=== PATIENT | male | born 1995 | race American Indian/Alaskan Native ===

== ENCOUNTER 2017-03-29 19:51 | Emergency (ER) | payer SELFPAY ==
[2017-03-29] MEDS ORDERED: ZITHROMAX PO ONE (22:40)
[2017-03-29] MEDS ORDERED: ROCEPHIN IM ONE (22:40)
[2017-03-29] MEDS ORDERED: XYLOCAINE 1% MPF 5 mL INFILTRATI ONE (22:40)
--- NOTE | 2017-03-29 22:40 | Emergency Department Report ---
<KARLA JOHNSTON - Last Filed: 03/29/17 22:36> ED General Adult HPI - General Chief complaint: Urogenital-Male Stated complaint: BURNING IN GROIN AREA Time Seen by Provider: 03/29/17 22:36 Source: patient Mode of arrival: Ambulatory Limitations: No Limitations - History of Present Illness Initial comments: 21 year old male presents with penile discharge and exposure to GC. states that his partner tested positive for it and advised him to come to the ED for tx. denies fever, penile or testicle pain. denies dysuria. denies taking medication. - Related Data Allergies Allergy/AdvReac Type Severity Reaction Status Date / Time Penicillins Allergy Angioedema Verified 03/29/17 20:03 ED Review of Systems ROS: Stated complaint: BURNING IN GROIN AREA Other details as noted in HPI Constitutional: denies: chills, fever Eyes: denies: eye pain, eye discharge, vision change ENT: denies: ear pain, throat pain Respiratory: denies: cough, shortness of breath, wheezing Cardiovascular: denies: chest pain, palpitations Endocrine: no symptoms reported Gastrointestinal: denies: abdominal pain, nausea, diarrhea Genitourinary: discharge. denies: urgency, dysuria Musculoskeletal: denies: back pain, joint swelling, arthralgia Skin: denies: rash, lesions Neurological: denies: headache, weakness, paresthesias Psychiatric: denies: anxiety, depression Hematological/Lymphatic: denies: easy bleeding, easy bruising ED Past Medical Hx - Past Medical History Previous Medical History?: No - Surgical History Past Surgical History?: No - Social History Smoking Status: Current Every Day Smoker Substance Use Type: Alcohol, Marijuana ED Physical Exam - General Limitations: No Limitations General appearance: alert, in no apparent distress - Head Head exam: Present: atraumatic, normocephalic - Eye Eye exam: Present: normal appearance - ENT ENT exam: Present: mucous membranes moist - Neck Neck exam: Present: normal inspection - Respiratory Respiratory exam: Present: normal lung sounds bilaterally. Absent: respiratory distress - Cardiovascular Cardiovascular Exam: Present: regular rate, normal rhythm. Absent: systolic murmur, diastolic murmur, rubs, gallop - GI/Abdominal GI/Abdominal exam: Present: soft, normal bowel sounds - Rectal Rectal exam: Present: deferred - Extremities Exam Extremities exam: Present: normal inspection - Back Exam Back exam: Present: normal inspection - Neurological Exam Neurological exam: Present: alert, oriented X3 - Psychiatric Psychiatric exam: Present: normal affect, normal mood - Skin Skin exam: Present: warm, dry, intact, normal color. Absent: rash ED Course Vital Signs 03/29/17 20:03 Temperature 98.5 F Pulse Rate 71 Blood Pressure 105/53 O2 Sat by Pulse 99 Oximetry ED Medical Decision Making - Medical Decision Making patient refusing testing. states he just needs tx. VSS for DC. NAD at this time. Critical care attestation.: If time is entered above; I have spent that time in minutes in the direct care of this critically ill patient, excluding procedure time. ED Disposition Disposition: DC-01 TO HOME OR SELFCARE Is pt being admited?: No Does the pt Need Aspirin: No Condition: Good Instructions: Sexually Transmitted Diseases (ED), Safe Sex (ED) Referrals: PRIMARY CARE, [Primary Care Provider] - 3-5 Days Forms: Accompanied Note, Work/School Release Form(ED) Time of Disposition: 22:40 <JOEL STEELE - Last Filed: 03/30/17 06:15> ED Medical Decision Making - Medical Decision Making Patient was empirically treated with azithromycin and Rocephin
[2017-03-30 11:33] VITALS: BP 105/53
== END 2017-03-29 23:22 | disposition home or self-care (01) ==
LOC: ED 19:51
DX: R36.9 Urethral discharge, unspecified (principal); F17.210 Nicotine dependence, cigarettes, uncomplicated; F12.10 Cannabis abuse, uncomplicated; Z88.0 Allergy status to penicillin
CPT/HCPCS: 87591; 96372; 99282; J0696

== ENCOUNTER 2019-03-30 22:59 | Emergency (ER) | payer SELFPAY ==
[2019-03-30 23:26] VITALS: BP 114/75
--- NOTE | 2019-03-31 01:47 | Emergency Department Report ---
ED Male HPI - General Chief complaint: Urogenital-Male Stated complaint: BURNING URINATION Source: patient Mode of arrival: Ambulatory Limitations: No Limitations - History of Present Illness Initial comments: Patient is a 23-year-old male who presents to the ED with complaint of acute onset suprapubic pressure, dysuria and urinary frequency and urgency with penile discharge for last 1 week. Patient denies fever, chills, nausea, vomiting, diarrhea, dizziness, low back pain, hematuria, testicular pain, scrotal pain or swelling, chronic pain, dizziness or sore throat and cough. MD Complaint: penile discharge, dysuria -: Sudden, week(s) (1) Location: penis Radiation: none Severity: moderate Severity scale (0 -10): 4 Quality: aching, burning Consistency: intermittent Improves with: none Worsens with: urination denies other symptoms, discharge, dysuria. denies: swelling, mass, rash, urinary retention, blood in urine, fever, nausea/vomiting, incontinence, other - Related Data Previous Rx's Medication Instructions Recorded Last Taken Type Azithromycin [Zithromax TAB] 2,000 mg PO ONCE #4 tablet 03/31/19 Unknown Rx Doxycycline Hyclate [Doxycycline 100 mg PO Q12HR #20 tab 03/31/19 Unknown Rx Hyclate TAB] Ondansetron [Zofran Odt] 4 mg PO Q6H PRN #10 tab.rapdis 03/31/19 Unknown Rx Allergies Allergy/AdvReac Type Severity Reaction Status Date / Time Penicillins Allergy Angioedema Verified 03/29/17 20:03 ED Review of Systems ROS: Stated complaint: BURNING URINATION Other details as noted in HPI Constitutional: denies: chills, fever Eyes: denies: eye pain, eye discharge, vision change ENT: denies: ear pain, throat pain Respiratory: denies: cough, shortness of breath, wheezing Cardiovascular: denies: chest pain, palpitations Endocrine: no symptoms reported Gastrointestinal: denies: abdominal pain, nausea, diarrhea Genitourinary: urgency, dysuria, frequency, discharge Musculoskeletal: denies: back pain, joint swelling, arthralgia Skin: denies: rash, lesions Neurological: denies: headache, weakness, paresthesias Psychiatric: denies: anxiety, depression Hematological/Lymphatic: denies: easy bleeding, easy bruising ED Past Medical Hx - Past Medical History Previous Medical History?: No - Surgical History Past Surgical History?: No - Social History Smoking Status: Current Every Day Smoker Substance Use Type: Alcohol, Marijuana - Medications Home Medications: Home Medications Medication Instructions Recorded Confirmed Last Taken Type Azithromycin [Zithromax TAB] 2,000 mg PO ONCE #4 tablet 03/31/19 Unknown Rx Doxycycline Hyclate [Doxycycline 100 mg PO Q12HR #20 tab 03/31/19 Unknown Rx Hyclate TAB] Ondansetron [Zofran Odt] 4 mg PO Q6H PRN #10 tab.rapdis 03/31/19 Unknown Rx ED Physical Exam - General Limitations: No Limitations General appearance: alert, in no apparent distress - Head Head exam: Present: atraumatic, normocephalic, normal inspection - Eye Eye exam: Present: normal appearance, PERRL, EOMI Pupils: Present: normal accommodation - ENT ENT exam: Present: normal exam, normal orophraynx, mucous membranes moist, TM's normal bilaterally, normal external ear exam - Neck Neck exam: Present: normal inspection, full ROM - Respiratory Respiratory exam: Present: normal lung sounds bilaterally. Absent: respiratory distress, wheezes, rales, rhonchi, chest wall tenderness, accessory muscle use, decreased breath sounds, prolonged expiratory - Cardiovascular Cardiovascular Exam: Present: regular rate, normal rhythm, normal heart sounds. Absent: systolic murmur, diastolic murmur, rubs, gallop - GI/Abdominal GI/Abdominal exam: Present: soft, normal bowel sounds. Absent: tenderness, guarding, hyperactive bowel sounds, organomegaly - Rectal Rectal exam: Present: deferred - exam: Present: normal inspection External exam: Present: normal external exam - Extremities Exam Extremities exam: Present: normal inspection, full ROM, normal capillary refill - Back Exam Back exam: Present: normal inspection, full ROM. Absent: tenderness, muscle spasm, vertebral tenderness - Neurological Exam Neurological exam: Present: alert, oriented X3, CN II-XII intact, normal gait, reflexes normal - Psychiatric Psychiatric exam: Present: normal affect, normal mood - Skin Skin exam: Present: warm, dry, intact, normal color. Absent: rash ED Course Vital Signs 03/30/19 23:23 Temperature 98.4 F Pulse Rate 67 Respiratory 18 Rate Blood Pressure 114/75 O2 Sat by Pulse 97 Oximetry ED Medical Decision Making - Medical Decision Making This is a 23-year-old male who presented to the ED with complaint of dysuria, penile discharge, suprapubic pressure and urinary frequency and urgency for 1 we ek. In the ED, patient is alert and oriented 3 and is not in distress. Lab test results were reviewed and shows significant due to urinary tract infection which in a patient of this age is highly likely STD given the exposure and his sexual history. Patient was treated and discharged home on medications for STD. Patient was advised to follow-up with [facility] for further evaluation. Patient was is advised to inform his sexual partner of his diagnosis so that he or she can be treated accordingly. Patient is advised to return to the ED immediately if symptoms get worse. - Differential Diagnosis STD; UTI; Epididymitis; orchitis; Trichomonas Critical care attestation.: If time is entered above; I have spent that time in minutes in the direct care of this critically ill patient, excluding procedure time. ED Disposition Clinical Impression: STD (sexually transmitted disease), Urethritis, unspecified Disposition: TO HOME OR SELFCARE Is pt being admited?: No Does the pt Need Aspirin: No Condition: Stable Instructions: Sexually Transmitted Diseases (ED), Safe Sex (ED), Nonspecific Urethritis in Men (ED) Additional Instructions: Take medication with food, drink plenty of fluids and follow-up with your primary care physician in 7-10 days for reevaluation. Return to the ED immediately if symptoms get worse. Otherwise follow-up with the [facility] for further STD testing. Prescriptions: Doxycycline Hyclate [Doxycycline Hyclate TAB] 100 mg PO Q12HR #20 tab Azithromycin [Zithromax TAB] 2,000 mg PO ONCE #4 tablet Ondansetron [Zofran Odt] 4 mg PO Q6H PRN #10 tab.rapdis PRN Reason: Nausea Referrals: PRIMARY CARE, [Primary Care Provider] - 3-5 Days Forms: STI Treatment and Prevention Time of Disposition: 01:37 Print Language: TONGAN
[2019-03-31 02:58] LABS: Bilirubin,Urine NEG (Negative); Blood,Urine NEG (Negative); Color,Urine Yellow (Yellow); Mucus,Urine 3+ /HPF; Urobilinogen,Urine < 2.0 mg/dL (<2.0)
[2019-03-31 02:59] LABS: WBC,Urine > 182.0 /HPF (0.0-6.0)
== END 2019-03-31 02:30 | disposition home or self-care (01) ==
LOC: ED 22:59
DX: Z20.2 Contact with and (suspected) exposure to infections with a predominantly sexual mode of transmission (principal); N34.2 Other urethritis; Z88.0 Allergy status to penicillin; Z79.899 Other long term (current) drug therapy; F17.200 Nicotine dependence, unspecified, uncomplicated; F12.10 Cannabis abuse, uncomplicated
CPT/HCPCS: 81001; 87591; 99283

== ENCOUNTER 2019-11-06 03:40 | Emergency (ER) | payer SELFPAY ==
[2019-11-06] MEDS ORDERED: ZIPRASIDONE MESYLATE 20 MG VIAL IM ONE (03:44)
--- NOTE | 2019-11-06 03:50 | Emergency Department Report ---
ED Psych HPI - General Stated Complaint: AMS Time Seen by Provider: 11/06/19 03:43 Source: EMS, old records reviewed Mode of arrival: Stretcher Limitations: Altered Mental Status - History of Present Illness Initial Comments: 23-year-old male with no known past medical history presents to the hospital with complaints of agitated delirium. PD was contacted by family due to unco ntrollable behavior after unknown drug use. PD managed to place patient in handcuffs. Upon EMS arrival patient was provided IM medication: Haldol 5 mg, Versed 5 mg, and Benadryl 50 mg 10 minutes prior to arrival. Patient arrives via EMS and police escort. Upon arrival patient is still restrained, agitated, intermittently screaming and thrashing around on the stretcher. Does mention he is at [facility] but otherwise would not answer questions or follow commands. As per previous medical record review patient does not have any past medical or surgical history and smokes cigarettes and uses marijuana - Related Data Previous Rx's Medication Instructions Recorded Last Taken Type Azithromycin [Zithromax TAB] 2,000 mg PO ONCE #4 tablet 03/31/19 Unknown Rx Doxycycline Hyclate [Doxycycline 100 mg PO Q12HR #20 tab 03/31/19 Unknown Rx Hyclate TAB] Ondansetron [Zofran Odt] 4 mg PO Q6H PRN #10 tab.rapdis 03/31/19 Unknown Rx Allergies Allergy/AdvReac Type Severity Reaction Status Date / Time Penicillins Allergy Angioedema Verified 03/29/17 20:03 ED Review of Systems ROS: Stated complaint: AMS Other details as noted in HPI Comment: Unobtainable due to pts medical conditions ED Past Medical Hx - Social History Smoking Status: Current Every Day Smoker Substance Use Type: Alcohol, Marijuana - Medications Home Medications: Home Medications Medication Instructions Recorded Confirmed Last Taken Type Azithromycin [Zithromax TAB] 2,000 mg PO ONCE #4 tablet 03/31/19 Unknown Rx Doxycycline Hyclate [Doxycycline 100 mg PO Q12HR #20 tab 03/31/19 Unknown Rx Hyclate TAB] Ondansetron [Zofran Odt] 4 mg PO Q6H PRN #10 tab.rapdis 03/31/19 Unknown Rx ED Physical Exam - Other Other exam information: General: Agitated Head: Atraumatic Eyes: normal appearance ENT: Moist mucous membranes Neck: Normal appearance, no midline tenderness Chest: Clear to auscultation bilaterally CV: Tachycardic regular rhythm Abdomen: Soft, normal bowel sounds, nontender, nondistended, no rebound or guarding Back: Normal inspection Extremity: Normal inspection, full range of motion Neuro: Alert O x 3, no facial asymmetry, speech clear, no gross motor sensory deficit Psych: Agitated, intermittently thrashing in bed Skin: Diaphoretic ED Course Vital Signs 11/06/19 11/06/19 11/06/19 04:08 04:15 05:39 Temperature 98.4 F Pulse Rate 94 H 70 Respiratory 18 20 15 Rate Blood Pressure 127/61 131/69 Blood Pressure [Right] O2 Sat by Pulse 94 97 96 Oximetry 11/06/19 11/06/19 11/06/19 06:00 06:30 07:00 Temperature Pulse Rate 82 81 108 H Respiratory 16 17 13 Rate Blood Pressure 124/48 Blood Pressure [Right] O2 Sat by Pulse 96 96 97 Oximetry 11/06/19 11/06/19 11/06/19 07:30 08:00 08:30 Temperature Pulse Rate Respiratory 16 Rate Blood Pressure 133/86 Blood Pressure [Right] O2 Sat by Pulse 95 97 98 Oximetry 11/06/19 11/06/19 11/06/19 09:00 09:30 10:00 Temperature 99 F Pulse Rate Respiratory Rate Blood Pressure 115/55 120/60 Blood Pressure [Right] O2 Sat by Pulse 97 96 97 Oximetry 11/06/19 11:30 Temperature 98.7 F Pulse Rate 84 Respiratory 16 Rate Blood Pressure Blood Pressure 110/66 [Right] O2 Sat by Pulse 100 Oximetry ED Medical Decision Making - Lab Data Result diagrams: 11/06/19 03:59 11/06/19 03:59 Lab Results 11/06/19 11/06/19 11/06/19 Range/Units 03:59 03:59 03:59 WBC 12.4 H (4.5-11.0) K/mm3 RBC 5.28 H (3.65-5.03) M/mm3 Hgb 14.6 (11.8-15.2) gm/dl Hct 44.4 (35.5-45.6) % MCV 84 (84-94) fl MCH 28 (28-32) pg MCHC 33 (32-34) % RDW 14.1 (13.2-15.2) % Plt Count 250 (140-440) K/mm3 Lymph % (Auto) 6.5 L (13.4-35.0) % [place] % (Auto) 4.0 (0.0-7.3) % Eos % (Auto) 0.0 (0.0-4.3) % Baso % (Auto) 0.2 (0.0-1.8) % Lymph # 0.8 L (1.2-5.4) K/mm3 [place] # 0.5 (0.0-0.8) K/mm3 Eos # 0.0 (0.0-0.4) K/mm3 Baso # 0.0 (0.0-0.1) K/mm3 Seg Neutrophils % 89.3 H (40.0-70.0) % Seg Neutrophils # 11.0 H (1.8-7.7) K/mm3 Sodium 140 (137-145) mmol/L Potassium 3.7 (3.6-5.0) mmol/L Chloride 99.0 (98-107) mmol/L Carbon Dioxide 18 L (22-30) mmol/L Anion Gap 27 mmol/L BUN 12 (9-20) mg/dL Creatinine 1.6 H (0.8-1.5) mg/dL Estimated GFR > 60 ml/min BUN/Creatinine Ratio 8 % Glucose 177 H (75-100) mg/dL Calcium 10.0 (8.4-10.2) mg/dL Total Bilirubin 0.40 (0.1-1.2) mg/dL AST 27 (5-40) units/L ALT 21 (7-56) units/L Alkaline Phosphatase 59 (35-129) units/L Total Creatine Kinase 597 H (55-170) units/L Total Protein 7.9 (6.3-8.2) g/dL Albumin 4.9 (3.9-5) g/dL Albumin/Globulin Ratio 1.6 % Urine Color (Yellow) Urine Turbidity (Clear) Urine pH (5.0-7.0) Ur Specific [place] (1.003-1.030) Urine Protein (Negative) mg/dL Urine Glucose (UA) (Negative) mg/dL Urine Ketones (Negative) mg/dL Urine Blood (Negative) Urine Nitrite (Negative) Urine Bilirubin (Negative) Urine Urobilinogen (<2.0) mg/dL Ur Leukocyte Esterase (Negative) Urine WBC (Auto) (0.0-6.0) /HPF Urine RBC (Auto) (0.0-6.0) /HPF U Epithel Cells (Auto) (0-13.0) /HPF Urine Mucus /HPF Salicylates < 0.3 L (2.8-20.0) mg/dL Urine Opiates Screen Urine Methadone Screen Acetaminophen (10.0-30.0) ug/mL Ur Barbiturates Screen Ur Phencyclidine Scrn Ur Amphetamines Screen U Benzodiazepines Scrn Urine Cocaine Screen U Marijuana (THC) Screen Drugs of Abuse Note Plasma/Serum Alcohol (0-0.07) % C.trachomatis DNA (SDA) (Not Detected) N.gonorrhoeae DNA (SDA) (Not Detected) 11/06/19 11/06/19 11/06/19 Range/Units 03:59 03:59 04:51 WBC (4.5-11.0) K/mm3 RBC (3.65-5.03) M/mm3 Hgb (11.8-15.2) gm/dl Hct (35.5-45.6) % MCV (84-94) fl MCH (28-32) pg MCHC (32-34) % RDW (13.2-15.2) % Plt Count (140-440) K/mm3 Lymph % (Auto) (13.4-35.0) % [place] % (Auto) (0.0-7.3) % Eos % (Auto) (0.0-4.3) % Baso % (Auto) (0.0-1.8) % Lymph # (1.2-5.4) K/mm3 [place] # (0.0-0.8) K/mm3 Eos # (0.0-0.4) K/mm3 Baso # (0.0-0.1) K/mm3 Seg Neutrophils % (40.0-70.0) % Seg Neutrophils # (1.8-7.7) K/mm3 Sodium (137-145) mmol/L Potassium (3.6-5.0) mmol/L Chloride (98-107) mmol/L Carbon Dioxide (22-30) mmol/L Anion Gap mmol/L BUN (9-20) mg/dL Creatinine (0.8-1.5) mg/dL Estimated GFR ml/min BUN/Creatinine Ratio % Glucose (75-100) mg/dL Calcium (8.4-10.2) mg/dL Total Bilirubin (0.1-1.2) mg/dL AST (5-40) units/L ALT (7-56) units/L Alkaline Phosphatase (35-129) units/L Total Creatine Kinase (55-170) units/L Total Protein (6.3-8.2) g/dL Albumin (3.9-5) g/dL Albumin/Globulin Ratio % Urine Color Yellow (Yellow) Urine Turbidity Slightly-cloudy (Clear) Urine pH 6.0 (5.0-7.0) Ur Specific [place] 1.021 (1.003-1.030) Urine Protein 100 mg/dl (Negative) mg/dL Urine Glucose (UA) 50 (Negative) mg/dL Urine Ketones Tr (Negative) mg/dL Urine Blood Mod (Negative) Urine Nitrite Neg (Negative) Urine Bilirubin Neg (Negative) Urine Urobilinogen 4.0 (<2.0) mg/dL Ur Leukocyte Esterase Sm (Negative) Urine WBC (Auto) 16.0 H (0.0-6.0) /HPF Urine RBC (Auto) 7.0 (0.0-6.0) /HPF U Epithel Cells (Auto) < 1.0 (0-13.0) /HPF Urine Mucus 3+ /HPF Salicylates (2.8-20.0) mg/dL Urine Opiates Screen Urine Methadone Screen Acetaminophen < 5.0 L (10.0-30.0) ug/mL Ur Barbiturates Screen Ur Phencyclidine Scrn Ur Amphetamines Screen U Benzodiazepines Scrn Urine Cocaine Screen U Marijuana (THC) Screen Drugs of Abuse Note Plasma/Serum Alcohol < 0.01 (0-0.07) % C.trachomatis DNA (SDA) (Not Detected) N.gonorrhoeae DNA (SDA) (Not Detected) 11/06/19 11/06/19 Range/Units 04:51 05:43 WBC (4.5-11.0) K/mm3 RBC (3.65-5.03) M/mm3 Hgb (11.8-15.2) gm/dl Hct (35.5-45.6) % MCV (84-94) fl MCH (28-32) pg MCHC (32-34) % RDW (13.2-15.2) % Plt Count (140-440) K/mm3 Lymph % (Auto) (13.4-35.0) % [place] % (Auto) (0.0-7.3) % Eos % (Auto) (0.0-4.3) % Baso % (Auto) (0.0-1.8) % Lymph # (1.2-5.4) K/mm3 [place] # (0.0-0.8) K/mm3 Eos # (0.0-0.4) K/mm3 Baso # (0.0-0.1) K/mm3 Seg Neutrophils % (40.0-70.0) % Seg Neutrophils # (1.8-7.7) K/mm3 Sodium (137-145) mmol/L Potassium (3.6-5.0) mmol/L Chloride (98-107) mmol/L Carbon Dioxide (22-30) mmol/L Anion Gap mmol/L BUN (9-20) mg/dL Creatinine (0.8-1.5) mg/dL Estimated GFR ml/min BUN/Creatinine Ratio % Glucose (75-100) mg/dL Calcium (8.4-10.2) mg/dL Total Bilirubin (0.1-1.2) mg/dL AST (5-40) units/L ALT (7-56) units/L Alkaline Phosphatase (35-129) units/L Total Creatine Kinase (55-170) units/L Total Protein (6.3-8.2) g/dL Albumin (3.9-5) g/dL Albumin/Globulin Ratio % Urine Color (Yellow) Urine Turbidity (Clear) Urine pH (5.0-7.0) Ur Specific [place] (1.003-1.030) Urine Protein (Negative) mg/dL Urine Glucose (UA) (Negative) mg/dL Urine Ketones (Negative) mg/dL Urine Blood (Negative) Urine Nitrite (Negative) Urine Bilirubin (Negative) Urine Urobilinogen (<2.0) mg/dL Ur Leukocyte Esterase (Negative) Urine WBC (Auto) (0.0-6.0) /HPF Urine RBC (Auto) (0.0-6.0) /HPF U Epithel Cells (Auto) (0-13.0) /HPF Urine Mucus /HPF Salicylates (2.8-20.0) mg/dL Urine Opiates Screen Presumptive negative Urine Methadone Screen Presumptive negative Acetaminophen (10.0-30.0) ug/mL Ur Barbiturates Screen Presumptive negative Ur Phencyclidine Scrn Presumptive negative Ur Amphetamines Screen Presumptive negative U Benzodiazepines Scrn Presumptive positive Urine Cocaine Screen Presumptive negative U Marijuana (THC) Screen Presumptive positive Drugs of Abuse Note Disclamer Plasma/Serum Alcohol (0-0.07) % C.trachomatis DNA (SDA) Detected H (Not Detected) N.gonorrhoeae DNA (SDA) Detected H (Not Detected) - Radiology Data Radiology results: report reviewed CHEST 1 VIEW INDICATION / CLINICAL INFORMATION: ams, delerium. COMPARISON: None available. FINDINGS: SUPPORT DEVICES: None. HEART / MEDIASTINUM: No significant abnormality. LUNGS / PLEURA: No significant pulmonary or pleural abnormality.. No pneumothorax. ADDITIONAL FINDINGS: No significant additional findings. IMPRESSION: 1. No acute findings. - Medical Decision Making pt ua with + wbc cells, pt has had 2 ed visits in past for std related urethritis. Penicillin allergy noted. He has received IM Rocephin here in the past without reports of allergy. Pt will be treated with rocephin and azithromycin. gc/chl urine test sent. Mild creatinine elevation noted. IV fluids ordered. No signs of rhabdomyolysis at this time pt has benzos + and marijuana + in urine. 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 Based on presentation I would suspect stimulant abuse however, UDS panel is limited. pt will require reassessment and lucita pt required chemical and physical restriction in the ED 1013 has been signed and mental health evaluation has been ordered ED chart reviewed on 11/08/2019 at 10:29 AM. It appears that patient woke up complaining of left shoulder pain and Dr. Reynoso ordered a left shoulder x-ray which is negative for acute injury. Please see Dr. Reynoso's note for his reassessment and resending of 1013. Gonorrhea and Chlamydia tests came back positive and patient was treated in the ED Rocephin and azithromycin - Differential Diagnosis Drug abuse, agitated delirium, psychosis Critical Care Time: No Critical care attestation.: If time is entered above; I have spent that time in minutes in the direct care of this critically ill patient, excluding procedure time. ED Disposition Clinical Impression: Agitated, Combative behavior, Acute psychosis, Medical clearance for psychiatric admission, Substance abuse, Urethritis, gonococcal, acute, Urethritis due to Chlamydia trachomatis Sprain of left shoulder Qualifiers: Encounter type: initial encounter Shoulder sprain type: unspecified sprain Qualified Code(s): S43.402A - Unspecified sprain of left shoulder joint, initial encounter Disposition: DC/TX-65 PSY HOSP/PSY UNIT Is pt being admited?: No Condition: Stable Instructions: Cannabis Abuse (ED), Shoulder Sprain (ED), Gonococcal Urethritis (ED) Additional Instructions: Motrin [id number] for shoulder soreness. Rest and splint x24 hours. Follow-up with orthopedic doctor. Return any acute change or problem. Referrals: [facility] [Outside] - 3-5 Days PRIMARY CARE, [Primary Care Provider] - 3-5 Days COREY SINCLAIR MD [Staff Physician] - 3-5 Days
[2019-11-06] MEDS ORDERED: SODIUM CHLORIDE 0.9% 1000 ML 1,000 ML IV ONE (03:55)
[2019-11-06 04:29] LABS: Basophils % (Auto) 0.2 % (0.0-1.8); Hematocrit 44.4 % (35.5-45.6); Hemoglobin 14.6 gm/dl (11.8-15.2); Lymphocytes # (Auto) 0.8 K/mm3 (1.2-5.4); Lymphocytes % (Auto) 6.5 % (13.4-35.0); Mean Corpuscular HGB Conc 33 % (32-34); Mean Corpuscular Volume 84 fl (84-94); Monocytes # (Auto) 0.5 K/mm3 (0.0-0.8); Platelet Count 250 K/mm3 (140-440); Red Blood Count 5.28 M/mm3 (3.65-5.03); Red Cell Distribution Width 14.1 % (13.2-15.2)
[2019-11-06 04:30] LABS: Alanine Aminotransferase 21 units/L (7-56); Albumin 4.9 g/dL (3.9-5); BUN/Creatinine Ratio 8; Blood Urea Nitrogen 12 mg/dL (9-20); Hemolysis Index 10
--- NOTE | 2019-11-06 05:12 | XRay Report ---
CHEST 1 VIEW INDICATION / CLINICAL INFORMATION: ams, delerium. COMPARISON: None available. FINDINGS: SUPPORT DEVICES: None. HEART / MEDIASTINUM: No significant abnormality. LUNGS / PLEURA: No significant pulmonary or pleural abnormality.. No pneumothorax. ADDITIONAL FINDINGS: No significant additional findings. IMPRESSION: 1. No acute findings. Signer Name: Curry Jones MD Signed: 11/06/2019 5:08 AM Workstation Name: [id number]
[2019-11-06 05:19] LABS: Amphetamine Screen,Urine PRESUMPTIVE NEGATIVE; Cocaine Screen,Urine PRESUMPTIVE NEGATIVE; Methadone Screen,Urine PRESUMPTIVE NEGATIVE; Opiate Screen,Urine PRESUMPTIVE NEGATIVE
[2019-11-06 05:21] LABS: Bilirubin,Urine NEG (Negative); Blood,Urine MOD (Negative); Color,Urine Yellow (Yellow); Mucus,Urine 3+ /HPF
[2019-11-06 05:33] LABS: Benzodiazepines Screen,Urine PRESUMPTIVE POSITIVE; Cannabinoid Screen,Urine PRESUMPTIVE POSITIVE
[2019-11-06] MEDS ORDERED: AZITHROMYCIN 250 MG TAB PO ONE (05:38)
[2019-11-06] MEDS ORDERED: cefTRIAXone/NS 1 GM/50 ML 1 GM/50 ML BAG IV ONE (05:50)
[2019-11-06] MEDS ORDERED: KETOROLAC 30 MG/1 ML INJ IV ONE (10:31)
--- NOTE | 2019-11-06 11:01 | XRay Report ---
LEFT SHOULDER, 3 VIEWS 11/06/2019 INDICATION / CLINICAL INFORMATION: pain injury. COMPARISON: None available. FINDINGS: No fracture or dislocation. Signer Name: Rolf Manuel MD Signed: 11/06/2019 10:56 AM Workstation Name: [id number]
[2019-11-06] MEDS ORDERED: AZITHROMYCIN 250 MG TAB ONE (11:07)
--- NOTE | 2019-11-06 11:09 | Emergency Department Report ---
Candie Doc - Documentation Documentation: I performed an interval reevaluation of this patient. He is completely coherent and alert. He states that he smoked some marijuana last night that "must of been laced with something". He essentially has retrograde amnesia for the course of events overnight. He states that he was not trying to hurt himself. He denies any psychiatric history. He is not depressed. He does complain of some left shoulder pain. Otherwise he is without complaints. Review of systems otherwise reviewed and negative Past medical history No psychiatric disorder, otherwise negative Physical exam HEENT NCAT, sclera is clear Neck supple nontender Chest clear to auscultation Cardiovascular S1-S2 regular rate without murmur Gastrointestinal soft nontender nondistended no organomegaly Musculoskeletal patient does have some apprehension with range of motion of his shoulder. There is no gross deformity. He is a muscular individual and I cannot be certain about his glenoid fossa, neurovascular exam is intact Neurological exam Awake alert and oriented x3 no focal deficits Psychiatric exam Mood and affect are normal X-ray left shoulder No fracture no dislocation Assessment Toxic encephalopathy Substance abuse Sprain shoulder Plan Rescinded 1013 NSAIDs for shoulder pain Orthopedic follow-up Referral to [facility]
[2019-11-06 11:41] VITALS: BP 110/66
== END 2019-11-06 11:35 ==
LOC: ED 03:40
DX: S43.402A Unspecified sprain of left shoulder joint, initial encounter (principal); R45.1 Restlessness and agitation; F23 Brief psychotic disorder; A54.01 Gonococcal cystitis and urethritis, unspecified; A56.01 Chlamydial cystitis and urethritis; R41.82 Altered mental status, unspecified; F17.200 Nicotine dependence, unspecified, uncomplicated; F12.90 Cannabis use, unspecified, uncomplicated; Z79.899 Other long term (current) drug therapy; Z88.0 Allergy status to penicillin; Z04.6 Encounter for general psychiatric examination, requested by authority; X58.XXXA Exposure to other specified factors, initial encounter; Y93.89 Activity, other specified; Y92.89 Other specified places as the place of occurrence of the external cause; Y99.8 Other external cause status
CPT/HCPCS: 36415; 71045; 73030; 80053; 80307; 81001; 82550; 85025; 87086; 87591; 93005; 96361; 96365; 96372; 96375; 99285; J0696; J1885; J3486; J7030; 80320; G0480

== ENCOUNTER 2020-06-26 17:42 | Emergency (ER) | payer SELFPAY ==
[2020-06-26 18:01] VITALS: BP 129/75
--- NOTE | 2020-06-26 18:08 | Emergency Department Report ---
ED ENT HPI - General Chief complaint: Earache Stated complaint: RT EAR CLOGGED/PAIN Time Seen by Provider: 06/26/20 18:01 Source: patient Mode of arrival: Ambulatory Limitations: No Limitations - History of Present Illness Initial comments: This pleasant 24-year-old male presents the emergency department chief complaint of right ear fullness and intermittent pain over the past 2 to 3 days. Patient denies any known past medical history, current medication use or known allergies medications. He denies any associated fever, chills, night sweats, headache, dizziness, blurry vision, nausea, vomit, diarrhea, chest pain, shortness of breath or any other associated symptoms. - Related Data Previous Rx's Medication Instructions Recorded Last Taken Type Azithromycin [Zithromax TAB] 2,000 mg PO ONCE #4 tablet 03/31/19 Unknown Rx Doxycycline Hyclate [Doxycycline 100 mg PO Q12HR #20 tab 03/31/19 Unknown Rx Hyclate TAB] Ondansetron [Zofran Odt] 4 mg PO Q6H PRN #10 tab.rapdis 03/31/19 Unknown Rx Azithromycin [Zithromax Z-DANIEL] 250 mg PO ONCE #1 pack 06/26/20 Unknown Rx Naproxen [Naprosyn TAB] 500 mg PO BID #20 tablet 06/26/20 Unknown Rx Allergies Allergy/AdvReac Type Severity Reaction Status Date / Time Penicillins Allergy Angioedema Verified 06/26/20 17:59 ED Dental HPI - General Chief complaint: Earache Stated complaint: RT EAR CLOGGED/PAIN Time Seen by Provider: 06/26/20 18:01 Source: patient Mode of arrival: Ambulatory Limitations: No Limitations - Related Data Previous Rx's Medication Instructions Recorded Last Taken Type Azithromycin [Zithromax TAB] 2,000 mg PO ONCE #4 tablet 03/31/19 Unknown Rx Doxycycline Hyclate [Doxycycline 100 mg PO Q12HR #20 tab 03/31/19 Unknown Rx Hyclate TAB] Ondansetron [Zofran Odt] 4 mg PO Q6H PRN #10 tab.rapdis 03/31/19 Unknown Rx Azithromycin [Zithromax Z-DANIEL] 250 mg PO ONCE #1 pack 06/26/20 Unknown Rx Naproxen [Naprosyn TAB] 500 mg PO BID #20 tablet 06/26/20 Unknown Rx Allergies Allergy/AdvReac Type Severity Reaction Status Date / Time Penicillins Allergy Angioedema Verified 06/26/20 17:59 ED Review of Systems ROS: Stated complaint: RT EAR CLOGGED/PAIN Other details as noted in HPI Constitutional: denies: chills, fever Eyes: denies: eye pain, eye discharge, vision change ENT: ear pain. denies: throat pain Respiratory: denies: cough, shortness of breath, wheezing Cardiovascular: denies: chest pain, palpitations Endocrine: no symptoms reported Gastrointestinal: denies: abdominal pain, nausea, diarrhea Genitourinary: denies: urgency, dysuria Musculoskeletal: denies: back pain, joint swelling, arthralgia Skin: denies: rash, lesions Neurological: denies: headache, weakness, paresthesias Psychiatric: denies: anxiety, depression Hematological/Lymphatic: denies: easy bleeding, easy bruising ED Past Medical Hx - Past Medical History Previous Medical History?: No - Surgical History Past Surgical History?: No - Social History Smoking Status: Never Smoker Substance Use Type: Marijuana - Medications Home Medications: Home Medications Medication Instructions Recorded Confirmed Last Taken Type Azithromycin [Zithromax TAB] 2,000 mg PO ONCE #4 tablet 03/31/19 Unknown Rx Doxycycline Hyclate [Doxycycline 100 mg PO Q12HR #20 tab 03/31/19 Unknown Rx Hyclate TAB] Ondansetron [Zofran Odt] 4 mg PO Q6H PRN #10 tab.rapdis 03/31/19 Unknown Rx Azithromycin [Zithromax Z-DANIEL] 250 mg PO ONCE #1 pack 06/26/20 Unknown Rx Naproxen [Naprosyn TAB] 500 mg PO BID #20 tablet 06/26/20 Unknown Rx ED Physical Exam - General Limitations: No Limitations General appearance: alert, in no apparent distress - Head Head exam: Present: atraumatic, normocephalic - Eye Eye exam: Present: normal appearance, PERRL, EOMI Pupils: Present: normal accommodation - ENT ENT exam: Present: normal exam, normal orophraynx, mucous membranes moist, normal external ear exam. Absent: TM's normal bilaterally (Erythema and bulging to the right TM. Normal external auditory canal.) - Neck Neck exam: Present: normal inspection, full ROM. Absent: tenderness, meningismus - Respiratory Respiratory exam: Present: normal lung sounds bilaterally. Absent: respiratory distress, wheezes, rales, rhonchi, stridor, chest wall tenderness - Cardiovascular Cardiovascular Exam: Present: regular rate, normal rhythm, normal heart sounds. Absent: systolic murmur, diastolic murmur, rubs, gallop - GI/Abdominal GI/Abdominal exam: Present: soft, normal bowel sounds. Absent: distended, tenderness, guarding, rebound, rigid - Rectal Rectal exam: Present: deferred - Extremities Exam Extremities exam: Present: normal inspection, full ROM, normal capillary refill. Absent: tenderness - Back Exam Back exam: Present: normal inspection, full ROM. Absent: tenderness, CVA tenderness (R), CVA tenderness (L) - Neurological Exam Neurological exam: Present: alert, oriented X3, normal gait - Psychiatric Psychiatric exam: Present: normal affect, normal mood - Skin Skin exam: Present: warm, dry, intact, normal color. Absent: rash ED Course Vital Signs 06/26/20 18:00 Temperature 98.9 F Pulse Rate 73 Respiratory 19 Rate Blood Pressure 129/75 O2 Sat by Pulse 98 Oximetry ED Medical Decision Making - Medical Decision Making Patient nontoxic in no acute distress. Vital signs are stable. Recommended warm compresses to the right external auditory canal area and Azithromycin due to PCN allergy as well as anti-inflammatories. Follow-up with primary care doctor in the next week for any change or worsening symptoms return to the emergency department. He verbalized understanding of the diagnosis, treatment plan and follow-up instructions and all his questions were answered. - Differential Diagnosis Otitis media, otitis externa, viral syndrome Critical care attestation.: If time is entered above; I have spent that time in minutes in the direct care of this critically ill patient, excluding procedure time. ED Disposition Clinical Impression: Acute otitis media Qualifiers: Otitis media type: suppurative Laterality: right Recurrence: not specified as recurrent Spontaneous tympanic membrane rupture: without spontaneous rupture Qualified Code(s): H66.001 - Acute suppurative otitis media without spontaneous rupture of ear drum, right ear Disposition: - TO HOME OR SELFCARE Is pt being admited?: No Condition: Stable Instructions: Otitis Media, Adult, [id number] Prescriptions: Naproxen [Naprosyn TAB] 500 mg PO BID #20 tablet Azithromycin [Zithromax Z-DANIEL] 250 mg PO ONCE #1 pack Referrals: [facility] [Provider Group] - 3-5 Days Forms: Work/School Release Form(ED) Time of Disposition: 18:06
== END 2020-06-26 18:47 | disposition home or self-care (01) ==
LOC: ED 17:42
DX: H66.91 Otitis media, unspecified, right ear (principal); F12.90 Cannabis use, unspecified, uncomplicated; Z88.0 Allergy status to penicillin; Z79.899 Other long term (current) drug therapy
CPT/HCPCS: 99281